=== PATIENT | female | born 1960 | race Caucasian/White ===

== ENCOUNTER 2017-02-01 11:21 | Emergency (ER) | payer SELFPAY ==
[~2017-02-01] VITALS: Ht 157.5 cm; Wt 65.0 kg
[2017-02-01 11:22] VITALS: BP 177/103; PULSE 98; TEMP 97.4; O2SAT 96
--- NOTE | 2017-02-01 11:30 | PD ---
Physical Exam Date Seen by Provider: Feb 01, 2017 Time Seen by Provider: 11:27 Narrative 56 y/o female here with nausea/vomitting for 3 days ago. Patient has Hx. Diabetes, and feels she got over heated and dehydrated and has been very anxious. feels SOB and Nauseous. Denies Chest Pain. Patient is depressed, but denies suicidal or Homicidal thoughts. Vital signs reviewed. Patient stable. Awaiting Bed placement. Data Data Last Documented VS Vital Signs Date Time Temp Pulse Resp B/P Pulse Ox O2 Delivery O2 Flow Rate FiO2 02/01/17 11:22 97.4 98 177/103 96 Room Air [facility] Medical Record Reviewed: Yes Supervised Visit with RAFFAELE: Yes Condition: Stable Mayo Moulton Feb 01, 2017 11:30
[2017-02-01] MEDS ORDERED: SODIUM CHLOR 0.9% 1000 ML INJ 1,000 ML IV SCH (11:40)
[2017-02-01] MEDS ORDERED: LORazepam 2 MG/ML VIAL IV PUSH ONE (11:45)
[2017-02-01] MEDS ORDERED: SODIUM CHLORIDE 0.9% FLUSH 10 ML FLUSH IV FLUSH PRN (11:45)
[2017-02-01] MEDS ORDERED: MORPHINE SULFATE 4 MG/ML INJ IV PUSH ONE ×2 (11:45→16:30)
[2017-02-01] MEDS ORDERED: ONDANSETRON HCL 4 MG/2 ML VIAL IVP ONE (11:45)
[2017-02-01] MEDS ORDERED: PANTOPRAZOLE SODIUM 40 MG VIAL IV PUSH ONE (11:45)
--- NOTE | 2017-02-01 11:50 | PD ---
HPI Chief Complaint: GI Complaint Time Seen by Provider: 11:46 Travel History International Travel<30 days: No Contact w/Intl Traveler<30days: No Traveled to known affect area: No History of Present Illness HPI Patient comes in complaining of 3 days of nausea and vomiting that began when she was in [place]. Patient states feels she stayed out in the heat too long causing her to get sick. Patient states she had similar occur approximately 2 weeks ago while in [place] was evaluated at that time they did not find a cause. Patient normally drinks 6-12 beers a day, but has not been able to drink since symptoms began. Patient reports associated diarrhea. Denies any blood in the vomit or diarrhea. Reports vomiting is nonbilious and denies any melena. Patient denies anything making it better. Try to eat or drink anything makes her symptoms worse. Patient states she has not been able to take her medicine secondary to vomiting. Patient having associated stabbing epigastric abdominal pain and shortness of breath with this. Pain radiates inferiorly. Denies anything making it better, vomiting makes the pain worse. PFSH Past Medical History Diabetes: Yes ?: Not Social History Alcohol Use: Yes Tobacco Use: No Substance Use: No Allergies-Medications (Allergen,Severity, Reaction): Coded Allergies: No Known Allergies (Unverified , 02/01/17) Reported Meds & Prescriptions Reported Meds & Active Scripts Active Bentyl (Dicyclomine HCl) 10 Mg Cap 10 Mg PO Q8HR PRN Phenergan Supp (Promethazine HCl) 12.5 Mg Supp 12.5 Mg RECTAL Q6H PRN Zofran Odt (Ondansetron Odt) 4 Mg Tab 4 Mg SL Q6HR PRN Review of Systems Except as stated in HPI: all other systems reviewed are Neg Physical Exam Narrative GENERAL: Well-developed, overly nourished, appears uncomfortable, and non-ill appearing. SKIN: Focused skin assessment warm and dry. HEAD: Atraumatic. Normocephalic. EYES: Pupils equal and round. EOMI. No scleral icterus. No injection or drainage. ENT: No nasal bleeding or discharge. Mucous membranes pink and moist. NECK: Trachea midline. Supple. No nuclear rigidity. CARDIOVASCULAR: Regular rate and rhythm. No murmur appreciated. RESPIRATORY: No accessory muscle use. No respiratory distress. Clear to auscultation. Breath sounds equal bilaterally. GASTROINTESTINAL: Abdomen soft, nondistended, and no guarding. Hepatic and splenic margins not palpable. Normal bowel sounds 4. No pulsatile mass. Patient reports tenderness to palpation epigastric area. MUSCULOSKELETAL: No obvious deformities. No clubbing. No cyanosis. No edema. Full range of motion. NEUROLOGICAL: Awake and alert. No obvious cranial nerve deficits. Motor grossly within normal limits. Normal speech. PSYCHIATRIC: Appropriate mood and affect; insight and judgment normal. Data Data Last Documented VS Vital Signs Date Time Temp Pulse Resp B/P Pulse Ox O2 Delivery O2 Flow Rate FiO2 02/01/17 13:03 100 Room Air 02/01/17 11:22 97.4 98 177/103 Orders Complete Blood Count With Diff (02/01/17 11:40) Comprehensive Metabolic Panel (02/01/17 11:40) Lipase (02/01/17 11:40) Prothrombin Time / Inr (Pt) (02/01/17 11:40) Act Partial Throm Time (Ptt) (02/01/17 11:40) Urinalysis - C+S If Indicated (02/01/17 11:40) Ct Abd/Pel W Iv Contrast(Rout) (02/01/17 11:40) Iv Access Insert/Monitor (02/01/17 11:40) Ecg Monitoring (02/01/17 11:40) Oximetry (02/01/17 11:40) Morphine Inj (Morphine Inj) (02/01/17 11:45) Ondansetron Inj (Zofran Inj) (02/01/17 11:45) Sodium Chlor 0.9% 1000 Ml Inj (Ns 1000 M (02/01/17 11:40) Sodium Chloride 0.9% Flush (Ns Flush) (02/01/17 11:45) Electrocardiogram (02/01/17 11:40) Chest, Single Ap (02/01/17 11:40) Magnesium (Mg) (02/01/17 11:40) Beta Hydroxybutyrate (Acetone) (02/01/17 11:40) Blood Glucose (02/01/17 11:40) Lorazepam Inj (Ativan Inj) (02/01/17 11:45) Pantoprazole Inj (Protonix Inj) (02/01/17 11:45) Sodium Chlor 0.9% 1000 Ml Inj (Ns 1000 M (02/01/17 13:30) Iohexol 350 Inj (Omnipaque 350 Inj) (02/01/17 13:39) Ondansetron Inj (Zofran Inj) (02/01/17 16:00) Dicyclomine (Bentyl) (02/01/17 16:00) Morphine Inj (Morphine Inj) (02/01/17 16:30) Labs Laboratory Tests Test 02/01/17 02/01/17 11:45 15:50 White Blood Count 9.7 TH/MM3 Red Blood Count 4.35 MIL/MM3 Hemoglobin 14.8 GM/DL Hematocrit 42.8 % Mean Corpuscular Volume 98.4 FL Mean Corpuscular Hemoglobin 34.0 PG Mean Corpuscular Hemoglobin 34.6 % Concent Red Cell Distribution Width 12.3 % Platelet Count 264 TH/MM3 Mean Platelet Volume 8.1 FL Neutrophils (%) (Auto) 75.6 % Lymphocytes (%) (Auto) 14.3 % Monocytes (%) (Auto) 9.9 % Eosinophils (%) (Auto) 0.1 % Basophils (%) (Auto) 0.1 % Neutrophils # (Auto) 7.3 TH/MM3 Lymphocytes # (Auto) 1.4 TH/MM3 Monocytes # (Auto) 1.0 TH/MM3 Eosinophils # (Auto) 0.0 TH/MM3 Basophils # (Auto) 0.0 TH/MM3 CBC Comment DIFF FINAL Differential Comment Prothrombin Time 10.2 SEC Prothromb Time International 0.9 RATIO Ratio Activated Partial 24.6 SEC Thromboplast Time Sodium Level 129 MEQ/L Potassium Level 4.4 MEQ/L Chloride Level 93 MEQ/L Carbon Dioxide Level 23.0 MEQ/L Anion Gap 13 MEQ/L Blood Urea Nitrogen 13 MG/DL Creatinine 1.11 MG/DL Estimat Glomerular Filtration 51 ML/MIN Rate Random Glucose 203 MG/DL Calcium Level 9.5 MG/DL Magnesium Level 1.8 MG/DL Total Bilirubin 0.8 MG/DL Aspartate Amino Transf 43 U/L (AST/SGOT) Alanine Aminotransferase 49 U/L (ALT/SGPT) Alkaline Phosphatase 79 U/L Total Protein 8.4 GM/DL Albumin 4.2 GM/DL Lipase 160 U/L B-Hydroxybutyrate 3.39 MMOL/L Urine Color YELLOW Urine Turbidity CLEAR Urine pH 6.0 Urine Specific [place] 1.038 Urine Protein TRACE mg/dL Urine Glucose (UA) 150 mg/dL Urine Ketones 40 mg/dL Urine Occult Blood NEG Urine Nitrite NEG Urine Bilirubin NEG Urine Urobilinogen LESS THAN 2.0 MG/DL Urine Leukocyte Esterase NEG Urine RBC LESS THAN 1 /hpf Urine WBC 3 /hpf Urine Squamous Epithelial <1 /hpf Cells Microscopic Urinalysis Comment CULT NOT INDICATED MDM Medical Decision Making Medical Screen Exam Complete: Yes Emergency Medical Condition: Yes Interpretation(s) EKG reviewed by Dr. Abdul shows sinus rhythm with ventricular rate of 85. No STEMI. Chest x-ray read by the radiologist shows: No acute disease. CT abdomen and pelvis read by the radiologist shows: Nonspecific bowel gas pattern without air-fluid levels. No inflammatory changes. Differential Diagnosis Pancreatitis, viral syndrome, UTI, electrolyte abnormality, DKA, dehydration, other Narrative Course 1430 Patient reassessed found to be in no acute distress. Awaiting CT and UA. 1510 patient reassessed found to be sleeping comfortably in bed in no acute distress. CT scan still pending. [address] findings with patient. Patient states she is nauseous again after being woke up to give a urine sample. Patient states last time they had to give her Demerol for pain which seemed to help. We 'll await urine results and likely discharged patient home for outpatient follow -up. The patient presented with upper epigastric abdominal pain suspicious for gastritis. There was no significant history of diarrhea and no fever. The patient appeared comfortable, well hydrated and the abdominal exam was unremarkable and minimal to nontender to me. Laboratory and radiographic evaluation revealed no significant abnormality. There was no evidence of an acute, surgical abdomen at this time. There was no clinical evidence to support cholecystitis/cholelithiasis, pancreatitis, perforation of gastric ulcer, colitis, diverticulitis, bacterial peritonitis, obstruction, volvulus, early appendicitis, or hernial incarceration or strangulation nor significant GIB at this time. There was no evidence to support vascular pathology such as AAA, mesenteric ischemia. There was also no clinical evidence by history, exam or risk factors to suggest atypical presentation of cardiac disease such as ACS, AMI or atypical angina. No evidence to suggest genitourinary etiology as well. During the course of the ED visit, the patient noted improvement. Clinical picture was discussed with the patient, as well as plan of care. The patient was instructed to follow up with their physician. Abdominal pain warnings were discussed with the patient. The patient is to return if worsens, pain worsens or changes, develop fever, inability to tolerate fluids with or without vomiting , unable to establish follow up or as needed. The patient agrees with plan. Patient in no obvious distress upon re-evaluation. All pertinent laboratory/ Radiology result(s) discussed with patient. Discussed patient with Dr. Abdul prior to discharge, who reviewed the clinical findings and is in agreement with plan of care and disposition. Patient was asked if they wanted to speak to my attending, which the patient did not wish to do at this time. Any questions/ concerns in reference to patient diagnosis/condition discussed and clarified prior to patient's discharge. Reinforced sheer importance of close follow up with patient's primary physician or primary care clinic. Instructed patient to return to ED immediately, if symptoms return/worsen. Pt showed understanding of above instructions. Further instructions and recommendations were detailed in discharge paperwork. Pt ambulated without difficulty out of ED at discharge. Diagnosis Primary Impression: Nausea & vomiting Qualified Code: R11.2 - Non-intractable vomiting with nausea, unspecified vomiting type Patient Instructions: Acute Nausea and Vomiting (ED), General Instructions Additional Instructions: Follow-up with your primary care physician or return in 24 hours for recheck. Take all medication as prescribed. Return to the emergency department if symptoms get worse. Med/Other Pt SpecificInfo: Prescription(s) given Scripts Dicyclomine (Bentyl)10 Mg Cap10 Mg PO Q8HR PRN (Bowel Management) #14 CAP Ref 0 Prov:Goran Abdul MD 02/01/17 Promethazine Supp (Phenergan Supp)12.5 Mg Supp12.5 Mg RECTAL Q6H PRN (NAUSEA OR VOMITING) #9 SUPP Ref 0 Prov:oGran Abdul MD 02/01/17 Ondansetron Odt (Zofran Odt)4 Mg Tab4 Mg SL Q6HR PRN (Nausea/Vomiting) #12 TAB Ref 0 Prov:Goran Abdul MD 02/01/17 Disposition: 01 DISCHARGE HOME Condition: Stable Juan Perez Feb 01, 2017 11:49
[2017-02-01 12:09] LABS: AUTOMATED NEUTROPHIL # 7.3 TH/MM3 (1.8-7.7); BASOPHIL % 0.1 % (0.0-2.0); EOSINOPHIL % 0.1 % (0.0-4.0); HEMATOCRIT 42.8 % (35.0-46.0); HEMO FLAGS DIFF FINAL; LYMPH % 14.3 % (9.0-44.0); LYMPHOCYTE # 1.4 TH/MM3 (1.0-4.8); MEAN CELL VOLUME 98.4 FL (80.0-100.0); MEAN CORPUSCULAR HGB CONC 34.6 % (32.0-36.0); MONO % 9.9 % (0.0-8.0); NEUT % 75.6 % (16.0-70.0); PLATELET COUNT 264 TH/MM3 (150-450); RED BLOOD COUNT 4.35 MIL/MM3 (4.00-5.30); RED CELL DISTRIBUTION WIDTH 12.3 % (11.6-17.2); WHITE BLOOD COUNT 9.7 TH/MM3 (4.0-11.0)
[2017-02-01 12:23] LABS: APTT (PATIENT) 24.6 SEC (24.3-30.1); INTERNATIONAL NORMALIZED RATIO 0.9 RATIO; PROTHROMBIN TIME - PATIENT 10.2 SEC (9.8-11.6)
[2017-02-01 12:34] LABS: ANION GAP 13 MEQ/L (5-15); AST (GOT) 43 U/L (15-37); BLOOD UREA NITROGEN 13 MG/DL (7-18); CHLORIDE 93 MEQ/L (98-107); GLOMERULAR FILTRATION RATE 51 ML/MIN (>89); MAGNESIUM 1.8 MG/DL (1.5-2.5); POTASSIUM 4.4 MEQ/L (3.5-5.1); SODIUM (NA) 129 MEQ/L (136-145)
[2017-02-01 12:37] LABS: ALKALINE PHOSPHATASE 79 U/L (45-117); ALT (GPT) 49 U/L (10-53); BETA-HYDROXYBUTYRATE 3.39 MMOL/L (0.00-0.39); TOTAL BILIRUBIN ADULT 0.8 MG/DL (0.2-1.0)
--- NOTE | 2017-02-01 12:40 | RADRPT ---
EXAM DATE/TIME: 02/01/2017 11:54 [facility] COMPARISON: No previous studies available for comparison. INDICATIONS : Dehydration and shortness of breath. MEDICAL HISTORY : Diabetes mellitus type II. anxiety SURGICAL HISTORY : None. ENCOUNTER: Initial ACUITY: 1 week PAIN SCORE: 7/10 LOCATION: Bilateral upper chest FINDINGS: A single view of the chest demonstrates the lungs to be symmetrically aerated without evidence of mas s, infiltrate or effusion. The cardiomediastinal contours are unremarkable. Osseous structures are intact. CONCLUSION: No acute disease. Michele Dia MD FACR on February 01, 2017 at 12:39 Board Certified Radiologist. This report was verified electronically.
[2017-02-01 13:03] VITALS: O2SAT 100
[2017-02-01] MEDS ORDERED: SODIUM CHLOR 0.9% 1000 ML INJ 1,000 ML IV ONE (13:30)
[2017-02-01] MEDS ORDERED: IOHEXOL 350 MG/ML 10 ML VIAL (for RAD DIAG) IV ONE (13:39)
--- NOTE | 2017-02-01 15:45 | RADRPT ---
EXAM DATE/TIME: 02/01/2017 13:18 [facility] COMPARISON: No previous studies available for comparison. INDICATIONS : Nausea and vomiting for three days. IV CONTRAST: 76 cc Omnipaque 350 (iohexol) IV ORAL CONTRAST: No oral contrast ingested. RADIATION DOSE: 9.96 CTDIvol (mGy) MEDICAL HISTORY : None SURGICAL HISTORY : None. ENCOUNTER: Initial ACUITY: 1 day PAIN SCALE: 0/10 LOCATION: Bilateral abdomen TECHNIQUE: Volumetric scanning of the abdomen and pelvis was performed. Using automated exposure control and ad justment of the mA and/or kV according to patient size, radiation dose was kept as low as reasonably achievable to obtain optimal diagnostic quality images. DICOM format image data is available electro nically for review and comparison. FINDINGS: LOWER LUNGS: The visualized lower lungs are clear. LIVER: Homogeneous density without lesion. There is no dilation of the biliary tree. No calcified gallston es. SPLEEN: Normal size without lesion. PANCREAS: Within normal limits. ADRENAL GLANDS: Within normal limits. KIDNEYS: 1 mm nonobstructing stone is present on the left. VASCULAR: There is no aortic aneurysm. BOWEL/MESENTERY: Dense mesentery calcifications are present in the pelvis. RETROPERITONEUM: There is no lymphadenopathy. BLADDER: No wall thickening or mass. REPRODUCTIVE: Within normal limits. ABDOMINAL WALL: Within normal limits. INGUINAL: There is no lymphadenopathy or hernia. MUSCULOSKELETAL: Mild degenerative changes are seen lower lumbar spine. CONCLUSION: 1. Nonspecific bowel gas pattern without air-fluid levels. 2. I do not see inflammatory changes. 3. I don't see an etiology of patient's nausea and vomiting. Michele Dia MD FACR on February 01, 2017 at 15:40 Board Certified Radiologist. This report was verified electronically.
[2017-02-01] MEDS ORDERED: DICYCLOMINE HCL 10 MG CAP PO ONE (16:00)
[2017-02-01] MEDS ORDERED: ONDANSETRON HCL 4 MG/2 ML VIAL IV PUSH ONE (16:00)
[2017-02-01 16:10] LABS: BLOOD, URINE NEG (NEG); GLUCOSE,URINE 150 mg/dL (NEG); KETONE, URINE 40 mg/dL (NEG); NITRITE,URINE NEG (NEG); SQUAMOUS EPITHELIAL CELL URINE <1 /hpf (0-5); URINE COLOR YELLOW (YELLW/STRAW)
[2017-02-01 16:14] LABS: COMMENT (UR) CULT NOT INDICATED; CULTURE IF INDICATED CULT NOT INDICATED
[2017-02-01] MEDS ORDERED: ZOFR4TAB3 SL (16:23)
[2017-02-01] MEDS ORDERED: PROM2SUP RECTAL (16:23)
[2017-02-01] MEDS ORDERED: DICY10 PO (16:23)
--- NOTE | 2017-02-02 15:51 | EKG ---
Date Performed: 02/01/2017 Time Performed: 12:52:47 PTAGE: 56 years EKG: Sinus rhythm SEPTAL MYOCARDIAL INFARCTION ABNORMAL ECG NO PREVIOUS TRACING DOCTOR: Milan Whalen Interpretating Date/Time 02/02/2017 15:45:13
[2017-02-02] MEDS ORDERED: LISI-519 PO (23:14)
[2017-02-02] MEDS ORDERED: ALPR.5 PO (23:14)
== END 2017-02-01 18:00 | disposition home or self-care (01) ==
LOC: NEPE 11:21
DX: R11.2 Nausea with vomiting, unspecified (principal); R10.13 Epigastric pain; R19.7 Diarrhea, unspecified; E11.9 Type 2 diabetes mellitus without complications; I21.29 ST elevation (STEMI) myocardial infarction involving other sites; R94.31 Abnormal electrocardiogram [ECG] [EKG]
CPT/HCPCS: 71010; 74177; 80053; 81001; 82010; 83690; 83735; 85025; 85610; 85730; 93005; 96374; 96375; 96376; 99285; C9113; J2060; J2270; J2405; J7030; Q9967

== ENCOUNTER 2017-02-02 19:24 | Emergency (ER) | payer BC ==
[~2017-02-02] VITALS: Ht 160 cm; Wt 65.0 kg
[~2017-02-02 19:24] MED LIST: DICY10 PO; PROM2SUP RECTAL; ZOFR4TAB3 SL
[2017-02-02 19:28] VITALS: BP 204/106; PULSE 84; RESP 18; TEMP 98.3; O2SAT 100
--- NOTE | 2017-02-02 19:40 | PD ---
Physical Exam Time Seen by Provider: 19:39 Narrative 56 y/o female with nausea and vomiting. Seen yesterday for same. Vital signs reviewed. Seen at triage desk. Awaiting bed placement. Data Data Last Documented VS Vital Signs Date Time Temp Pulse Resp B/P Pulse Ox O2 Delivery O2 Flow Rate FiO2 02/02/17 19:28 98.3 84 18 204/106 100 MDM Medical Record Reviewed: Yes Supervised Visit with RAFFAELE: Doyle Ortiz Feb 02, 2017 19:40
[2017-02-02] MEDS ORDERED: SODIUM CHLOR 0.9% 1000 ML INJ 1,000 ML IV ONE ×2 (22:09→22:39)
[2017-02-02] MEDS ORDERED: METOCLOPRAMIDE HCL 10 MG/2 ML VIAL IV PUSH ONE (22:15)
[2017-02-02] MEDS ORDERED: ALUMINUM/MAGNESIUM/SIMETH 30 ML CUP PO ONE (22:15)
[2017-02-02] MEDS ORDERED: SODIUM CHLORIDE 0.9% FLUSH 10 ML FLUSH IVF PRN (22:15)
[2017-02-02] MEDS ORDERED: LIDOCAINE VISCOUS 2% SOLN 15 ML UDC PO ONE (22:15)
[2017-02-02] MEDS ORDERED: MORPHINE SULFATE 4 MG/ML INJ IV PUSH ONE (22:15)
--- NOTE | 2017-02-02 22:15 | PD ---
HPI Chief Complaint: GI Complaint Time Seen by Provider: 22:05 Travel History International Travel<30 days: No Contact w/Intl Traveler<30days: No Traveled to known affect area: No History of Present Illness HPI 56-year-old female with history of diabetes here for evaluation of nausea, vomiting, and abdominal pain. Patient was seen in the emergency department yesterday for the same. At that time she had a CT abdomen pelvis that showed a nonspecific bowel gas pattern without air fluid levels, no inflammatory changes. Patient was treated and discharged from the emergency department feeling better. She states her symptoms returned today. She states that her pain is diffuse and feels as though there is acid in her stomach. She reports that she was admitted to another hospital about 3 weeks ago for the same symptoms. She is from [place] and is here on vacation. She admits to drinking beer daily and smoking marijuana. She denies any other illicit drugs. No history of abdominal surgeries. She reports that she has not had a bowel movement in a few days. PFSH Past Medical History Diabetes: Yes Social History Alcohol Use: Yes Tobacco Use: No Substance Use: No Allergies-Medications (Allergen,Severity, Reaction): Coded Allergies: No Known Allergies (Unverified , 02/02/17) Reported Meds & Prescriptions Reported Meds & Active Scripts Active Bentyl (Dicyclomine HCl) 10 Mg Cap 10 Mg PO Q8HR PRN Phenergan Supp (Promethazine HCl) 12.5 Mg Supp 12.5 Mg RECTAL Q6H PRN Zofran Odt (Ondansetron Odt) 4 Mg Tab 4 Mg SL Q6HR PRN Reported Lisinopril 5 Mg Tab 5 Mg PO DAILY Xanax (Alprazolam) 0.5 Mg Tab 0.5 Mg PO Q4H PRN Review of Systems Except as stated in HPI: all other systems reviewed are Neg Physical Exam Narrative GENERAL: Well-developed, well-nourished, in no apparent distress. SKIN: Focused skin assessment warm/dry. No rash. No pallor. HEAD: Atraumatic. Normocephalic. EYES: Pupils equal and round. No scleral icterus. No injection or drainage. ENT: Mucous membranes pink and dry. NECK: Trachea midline. No JVD. CARDIOVASCULAR: Regular rate and rhythm. RESPIRATORY: No accessory muscle use. Clear to auscultation. Breath sounds equal bilaterally. GASTROINTESTINAL: Abdomen soft, non-tender, nondistended. Normal bowel sounds. MUSCULOSKELETAL: No obvious deformities. No clubbing. No cyanosis. No edema. NEUROLOGICAL: Awake and alert. No obvious cranial nerve deficits. Motor grossly within normal limits. Normal speech. PSYCHIATRIC: Appropriate mood and affect; insight and judgment normal. Data Data Last Documented VS Vital Signs Date Time Temp Pulse Resp B/P Pulse Ox O2 Delivery O2 Flow Rate FiO2 02/02/17 19:28 98.3 84 18 204/106 100 Orders Electrocardiogram (02/02/17 22:09) Complete Blood Count With Diff (02/02/17 22:09) Comprehensive Metabolic Panel (02/02/17 22:09) Beta Hydroxybutyrate (Acetone) (02/02/17 22:09) Urinalysis - C+S If Indicated (02/02/17 22:09) Blood Gas Venous (Vbg) (02/02/17 22:09) Ecg Monitoring (02/02/17 22:09) Iv Access Insert/Monitor (02/02/17 22:09) Oximetry (02/02/17 22:09) NPO (02/02/17 22:09) Sodium Chlor 0.9% 1000 Ml Inj (Ns 1000 M (02/02/17 22:09) Sodium Chlor 0.9% 1000 Ml Inj (Ns 1000 M (02/02/17 22:39) Sodium Chloride 0.9% Flush (Ns Flush) (02/02/17 22:15) Lipase (02/02/17 22:09) Metoclopramide Inj (Reglan Inj) (02/02/17 22:15) Morphine Inj (Morphine Inj) (02/02/17 22:15) Abdomen, Flat & Upright (02/02/17 ) Al-Mag Hy-Si 40-40-4 Mg/Ml Liq (Mag-Al P (02/02/17 22:15) Lidocaine 2% Viscous (Xylocaine 2% Visco (02/02/17 22:15) Labs Laboratory Tests Test 02/02/17 02/02/17 02/02/17 22:20 22:30 23:05 Blood Gas Puncture Site LEFT ARM IV Blood Gas Patient Temperature 98.6 Venous Blood pH 7.40 Venous Blood Partial Pressure 35 mmHg CO2 Venous Blood Partial Pressure 51 mmHg O2 Venous Blood HCO3 21 mmol/L Venous Blood Oxygen Saturation 84 % Venous Blood Oxygen Content 16.2 Vol % Venous Blood Base Excess -2.7 mmol/L Oxygen Delivery Device ROOM AIR Blood Gas Inspired Oxygen 21 % Sodium Level 133 MEQ/L Potassium Level 3.8 MEQ/L Chloride Level 95 MEQ/L Carbon Dioxide Level 23.3 MEQ/L Anion Gap 15 MEQ/L Blood Urea Nitrogen 12 MG/DL Creatinine 0.81 MG/DL Estimat Glomerular Filtration 74 ML/MIN Rate Random Glucose 132 MG/DL Calcium Level 8.6 MG/DL Total Bilirubin 0.7 MG/DL Aspartate Amino Transf 55 U/L (AST/SGOT) Alanine Aminotransferase 52 U/L (ALT/SGPT) Alkaline Phosphatase 68 U/L Total Protein 7.7 GM/DL Albumin 3.7 GM/DL Lipase 123 U/L B-Hydroxybutyrate 3.25 MMOL/L White Blood Count 7.0 TH/MM3 Red Blood Count 4.04 MIL/MM3 Hemoglobin 14.1 GM/DL Hematocrit 39.7 % Mean Corpuscular Volume 98.4 FL Mean Corpuscular Hemoglobin 34.9 PG Mean Corpuscular Hemoglobin 35.5 % Concent Red Cell Distribution Width 12.2 % Platelet Count 187 TH/MM3 Mean Platelet Volume 8.2 FL Neutrophils (%) (Auto) 68.2 % Lymphocytes (%) (Auto) 20.8 % Monocytes (%) (Auto) 10.3 % Eosinophils (%) (Auto) 0.2 % Basophils (%) (Auto) 0.5 % Neutrophils # (Auto) 4.8 TH/MM3 Lymphocytes # (Auto) 1.5 TH/MM3 Monocytes # (Auto) 0.7 TH/MM3 Eosinophils # (Auto) 0.0 TH/MM3 Basophils # (Auto) 0.0 TH/MM3 CBC Comment DIFF FINAL Differential Comment MDM Medical Decision Making Medical Screen Exam Complete: Yes Emergency Medical Condition: Yes Medical Record Reviewed: Yes Interpretation(s) EKG: Sinus, rate 67, normal axis, normal intervals, no acute ischemic abnormality. Differential Diagnosis Nausea and vomiting, dehydration, metabolic abnormality, gastritis, peptic ulcer disease, pancreatitis, hepatobiliary disease, bowel obstruction less likely Narrative Course Vital signs show heart rate 84, blood pressure 204/106, pulse ox 100% on room air, oral temp of 98.3 her neck. CBC is unremarkable. CMP is essentially unremarkable. Lipase is 123. Abdominal x-ray: Normal exam. The patient was given pain medication and antiemetics. On reassessment she is sleeping comfortably. She states she is feeling a lot better. She also reports that she is driving home to [place] tomorrow with her significant other and is requesting that I give her some pain medication to help her throughout her trip. Patient is likely suffering from gastritis or peptic ulcer disease. She will be given a prescription for Protonix. She is stable for discharge home with outpatient follow-up with her primary care physician this week. She was informed on when to return to the emergency department. She verbalizes understanding and agreement with plan. Diagnosis Primary Impression: Nausea & vomiting Qualified Code: R11.2 - Non-intractable vomiting with nausea, unspecified vomiting type Additional Impression: Epigastric abdominal pain Referrals: Primary Care Physician 3 days Additional Instructions: Follow-up with your primary care physician this week. Return to the emergency department for worsening symptoms or any other concerns. Scripts Oxycodone-Acetaminophen (Percocet)5-325 mg Tab1 Tab PO Q6H PRN (PAIN) #6 TAB Ref 0 Prov:Wilbur Li MD 02/03/17 Pantoprazole (Protonix)40 Mg Tab40 Mg PO DAILY #30 TAB Ref 0 Prov:Wilbur Li MD 02/03/17 Disposition: 01 DISCHARGE HOME Condition: Stable Wilbur Li MD Feb 02, 2017 22:15
[2017-02-02 22:41] LABS: BLOOD GAS VENOUS BASE EXCESS -2.7 mmol/L (-2-2); BLOOD GAS VENOUS HCO3 21 mmol/L (22-26); BLOOD GAS VENOUS O2 CONTENT 16.2 Vol % (9.0-17.0); BLOOD GAS VENOUS O2 HGB SAT 84 % (70-76); BLOOD GAS VENOUS PCO2 35 mmHg (44-48); BLOOD GAS VENOUS PO2 51 mmHg (35-40); CRITICAL VALUE NO; DRAW SITE LEFT ARM IV; FIO2 21 %; OXYGEN DEVICE ROOM AIR; STAT YES; TEMP CORR TO 98.6
[2017-02-02 23:07] LABS: ALKALINE PHOSPHATASE 68 U/L (45-117); ALT (GPT) 52 U/L (10-53); ANION GAP 15 MEQ/L (5-15); AST (GOT) 55 U/L (15-37); BETA-HYDROXYBUTYRATE 3.25 MMOL/L (0.00-0.39); BICARBONATE 23.3 MEQ/L (21.0-32.0); BLOOD UREA NITROGEN 12 MG/DL (7-18); CHLORIDE 95 MEQ/L (98-107); GLOMERULAR FILTRATION RATE 74 ML/MIN (>89); SODIUM (NA) 133 MEQ/L (136-145); TOTAL BILIRUBIN ADULT 0.7 MG/DL (0.2-1.0)
[2017-02-02 23:09] LABS: POTASSIUM 3.8 MEQ/L (3.5-5.1)
--- NOTE | 2017-02-02 23:10 | RADRPT ---
EXAM DATE/TIME: 02/02/2017 22:55 [facility] COMPARISON: CT ABDOMEN & PELVIS W CONTRAST, February 01, 2017, 13:18. INDICATIONS : Abdomen pain, obstruction. MEDICAL HISTORY : None. SURGICAL HISTORY : None. ENCOUNTER: Initial ACUITY: 1 day PAIN SCORE: 0/10 LOCATION: Bilateral abdomen FINDINGS: Supine and upright views of the abdomen were performed. The abdominal bowel gas pattern is normal. No air fluid levels are seen. No abnormal masses, calcifications, or organomegaly is seen. The visu alized lower lungs are clear. No evidence of free intraperitoneal gas. The osseous structures are u nremarkable. Metallic radiodensities in the pelvis are noted characteristic of tubal ligation clips. CONCLUSION: Normal examination. Inocente Neff MD on February 02, 2017 at 23:08 Board Certified Radiologist. This report was verified electronically.
[2017-02-02] MEDS ORDERED: ALPR.5 PO (23:14)
[2017-02-02] MEDS ORDERED: LISI-519 PO (23:14)
[2017-02-02 23:21] LABS: AUTOMATED NEUTROPHIL # 4.8 TH/MM3 (1.8-7.7); BASOPHIL % 0.5 % (0.0-2.0); EOSINOPHIL % 0.2 % (0.0-4.0); HEMATOCRIT 39.7 % (35.0-46.0); HEMO FLAGS DIFF FINAL; LYMPH % 20.8 % (9.0-44.0); LYMPHOCYTE # 1.5 TH/MM3 (1.0-4.8); MEAN CELL VOLUME 98.4 FL (80.0-100.0); MEAN CORPUSCULAR HEMOGLOBIN 34.9 PG (27.0-34.0); MEAN CORPUSCULAR HGB CONC 35.5 % (32.0-36.0); MONO % 10.3 % (0.0-8.0); NEUT % 68.2 % (16.0-70.0); PLATELET COUNT 187 TH/MM3 (150-450); RED BLOOD COUNT 4.04 MIL/MM3 (4.00-5.30); RED CELL DISTRIBUTION WIDTH 12.2 % (11.6-17.2)
[2017-02-03] MEDS ORDERED: PERC5TAB12 PO (00:09)
[2017-02-03] MEDS ORDERED: PROT40TA PO (00:09)
[2017-02-03 00:39] VITALS: BP 150/72; PULSE 79; RESP 16; O2SAT 100
--- NOTE | 2017-02-03 08:20 | EKG ---
Date Performed: 02/02/2017 Time Performed: 23:23:29 PTAGE: 56 years EKG: Sinus rhythm NORMAL ECG PREVIOUS TRACING : 02/01/2017 12.52 DOCTOR: Gutierrez Mandel Interpretating Date/Time 02/03/2017 08:19:28
== END 2017-02-03 00:50 | disposition home or self-care (01) ==
LOC: NEPC 19:24
DX: R11.2 Nausea with vomiting, unspecified (principal); R10.13 Epigastric pain; E11.9 Type 2 diabetes mellitus without complications; Z79.899 Other long term (current) drug therapy
CPT/HCPCS: 74020; 80053; 82010; 82805; 83690; 85025; 93005; 96361; 96374; 96375; 99285; J2270; J2765; J7030